=== PATIENT | male | born 1950 | race Two or more races ===

== ENCOUNTER 2016-12-16 09:03 | Day surgery (SDC) | payer OTHER ==
[2017-04-18] MEDS ORDERED: STIOLTO RESPIMAT4 GM INH (04:58)
[2017-04-18] MEDS ORDERED: FLONASE ALLERG9.9 ML (04:58)
[2017-04-23] MEDS ORDERED: CYCLOBENZAPRINE5 M1 PO (09:37)
[2017-04-23] MEDS ORDERED: NORCO 5-325 TA1 EACH PO (09:42)
[2017-04-23] MEDS ORDERED: ULTRAM50 M1 PO (09:43)
[2017-04-23] MEDS ORDERED: TYLENOL325 M2 PO (09:45)
[2017-04-23] MEDS ORDERED: SENOKOT-S TABL1 EACH PO (09:46)
== END 2016-12-16 14:50 ==
LOC: SHSA 09:03 → PACU 13:13 → SHSA 13:46
DX: M77.11 Lateral epicondylitis, right elbow (principal); M77.01 Medial epicondylitis, right elbow; M75.21 Bicipital tendinitis, right shoulder; M25.821 Other specified joint disorders, right elbow; E66.9 Obesity, unspecified; G47.30 Sleep apnea, unspecified; Z90.49 Acquired absence of other specified parts of digestive tract; W20.8XXA Other cause of strike by thrown, projected or falling object, initial encounter; Y93.89 Activity, other specified; Y92.69 Other specified industrial and construction area as the place of occurrence of the external cause; Y99.0 Civilian activity done for income or pay

== ENCOUNTER 2017-02-13 07:55 | Day surgery (SDC) | payer OTHER ==
[2017-04-18] MEDS ORDERED: FLONASE ALLERG9.9 ML (04:58)
[2017-04-18] MEDS ORDERED: STIOLTO RESPIMAT4 GM INH (04:58)
[2017-04-23] MEDS ORDERED: CYCLOBENZAPRINE5 M1 PO (09:37)
[2017-04-23] MEDS ORDERED: NORCO 5-325 TA1 EACH PO (09:42)
[2017-04-23] MEDS ORDERED: ULTRAM50 M1 PO (09:43)
[2017-04-23] MEDS ORDERED: TYLENOL325 M2 PO (09:45)
[2017-04-23] MEDS ORDERED: SENOKOT-S TABL1 EACH PO (09:46)
== END 2017-02-13 12:35 ==
LOC: MRI 07:55 → SHSB 07:58 → PACU 10:48 → SHSB 11:35
DX: M43.17 Spondylolisthesis, lumbosacral region (principal); M48.07 Spinal stenosis, lumbosacral region; J44.9 Chronic obstructive pulmonary disease, unspecified; G47.33 Obstructive sleep apnea (adult) (pediatric); K21.9 Gastro-esophageal reflux disease without esophagitis; E55.9 Vitamin D deficiency, unspecified; Z87.891 Personal history of nicotine dependence; Z90.49 Acquired absence of other specified parts of digestive tract